=== PATIENT | male | born 1975 | race Caucasian/White ===

== ENCOUNTER 2016-11-26 13:16 | Emergency (ER) | payer SELFPAY ==
[2016-11-26] MEDS ORDERED: VALIUM IV ONE (17:47)
[2016-11-26] MEDS ORDERED: NACL 0.9% 1000 ML 1,000 ML IV ONE (17:47)
[2016-11-26 18:24] LABS: Basophils % (Auto) 0.6 % (0.0-1.8); Eosinophils % (Auto) 0.1 % (0.0-4.3); Hematocrit 40.6 % (35.5-45.6); Hemoglobin 13.2 gm/dl (11.8-15.2); Mean Corpuscular HGB Conc 33 % (32-34); Mean Corpuscular Hemoglobin 28 pg (28-32); Mean Corpuscular Volume 87 fl (84-94); Platelet Count 218 K/mm3 (140-440); Red Blood Count 4.66 M/mm3 (3.65-5.03); Red Cell Distribution Width 12.6 % (13.2-15.2); White Blood Count 8.7 K/mm3 (4.5-11.0)
[2016-11-26 18:42] LABS: Anion Gap 18 mmol/L; Blood Urea Nitrogen 10 mg/dL (9-20); Calcium 8.7 mg/dL (8.4-10.2); Carbon Dioxide 24 mmol/L (22-30); Chloride 97.5 mmol/L (98-107); Creatine Kinase 520 units/L (55-170); Glucose 107 mg/dL (75-100); Potassium 3.4 mmol/L (3.6-5.0); Sodium 136 mmol/L (137-145)
--- NOTE | 2016-11-26 19:03 | Emergency Department Report ---
HPI - General Chief Complaint: Extremity Injury, Lower Time Seen by Provider: 11/26/16 17:51 - HPI HPI: 41-year-old Afro[place] male presents to the emergency department with complaint of pain in the right thigh has been going on for 1 day. He denies any trauma or any event that may have caused the injury or discomfort. He denies any skin color change, swelling. He denies ever having this before. He does not have any past medical history. He has not taken anything for symptoms prior to presentation. He does not have a primary care doctor. No recent travel or sick contacts at home or any prolonged travel or immobility. ED Past Medical Hx - Past Medical History Previous Medical History?: No - Surgical History Past Surgical History?: No - Social History Smoking Status: Former Smoker - Medications Home Medications: Home Medications Medication Instructions Recorded Confirmed Last Taken Type HYDROcodone/APAP 5-325 [[employer] 1 each PO Q6HR PRN #10 tablet 11/26/16 Unknown Rx 5/325] ED Review of Systems ROS: Stated complaint: RIGHT LEG PAIN Other details as noted in HPI Comment: All other systems reviewed and negative Constitutional: denies: chills, fever Eyes: denies: eye pain, eye discharge, vision change ENT: denies: ear pain, throat pain Respiratory: denies: cough, shortness of breath, wheezing Cardiovascular: denies: chest pain, palpitations Gastrointestinal: denies: abdominal pain, nausea, diarrhea Genitourinary: denies: urgency, dysuria Musculoskeletal: myalgia. denies: back pain Skin: denies: rash, lesions Neurological: denies: headache, weakness, paresthesias Physical Exam - Physical Exam Vital Signs: Vital Signs 11/26/16 13:59 Temperature 97.9 F Pulse Rate 64 Respiratory 20 Rate Blood Pressure 156/99 O2 Sat by Pulse 100 Oximetry Physical Exam: GENERAL: The patient is well-developed well-nourished. HEENT: Normocephalic. Atraumatic. Extraocular motions are intact. Patient has moist mucous membranes. Pupils equal reactive to light bilaterally. NECK: Supple. Trachea is midline. CHEST/LUNGS: Clear to auscultation. There is no respiratory distress noted. HEART/CARDIOVASCULAR: Regular. There is no tachycardia. There is no gallop rub or murmur. ABDOMEN: Abdomen is soft, nontender. Patient has normal bowel sounds. There is no abdominal distention. SKIN: There is no rash. There is no edema. There is no diaphoresis. NEURO: The patient is awake, alert, and oriented. The patient is cooperative. The patient has no focal neurologic deficits. The patient has normal speech. MUSCULOSKELETAL: There is some tenderness to palpation to the mid to proximal right thigh but no obvious deformity. There is no limitation range of motion. There is no evidence of acute injury. Muscle strength 5 out of 5 for upper and lower extremities bilaterally. ED Course Vital Signs 11/26/16 13:59 Temperature 97.9 F Pulse Rate 64 Respiratory 20 Rate Blood Pressure 156/99 O2 Sat by Pulse 100 Oximetry ED Medical Decision Making - Lab Data Result diagrams: 11/26/16 18:00 11/26/16 18:00 - Radiology Data Radiology results: report reviewed, image reviewed interpreted by me: X-ray of the right femur does not show any fracture, dislocation, malignancy or any acute process. Right Lower extremity venous Doppler is negative for any DVT. - Medical Decision Making 41-year-old male presents to the emergency department with a one-day history of atraumatic right thigh/leg pain. Negative on venous Doppler for DVT. Labs do not show any leukocytosis, significant elevated creatinine kinase to show rhabdomyolysis or any electrolyte abnormalities that would cause severe muscle spasms. Patient was given IV fluid resuscitation and a dose of a muscle relaxer. X-ray did not show any occult fracture or underlying osseous abnormalities. Patient was seen ambulatory and appears stable while doing so. He will be discharged home with a referral for primary care and orthopedist as well as some pain medication. He will return to the ER with any worsening symptoms or any acute distress. - Differential Diagnosis muscle spasm, DVT, occult fracture, electrolyte abnormality, rhabdomyolysis Critical Care Time: No Critical care attestation.: If time is entered above; I have spent that time in minutes in the direct care of this critically ill patient, excluding procedure time. ED Disposition Clinical Impression: Right leg pain Hypertension Qualifiers: Hypertension type: essential hypertension Qualified Code(s): I10 - Essential ( primary) hypertension Disposition: DISCHARGED TO HOME OR SELFCARE Is pt being admited?: No Condition: Stable Instructions: Arthralgia (ED), Hypertension (ED) Additional Instructions: Please follow-up with a primary care doctor in the next few days. I will also given you a referral for a local orthopedist, Dr. Cesar, to follow-up regarding her leg pain. Return to the emergency department with any worsening of your symptoms or any acute distress. You've been prescribed a medication that is sedating. Therefore this medication cannot be mixed with alcohol, or taken prior to driving, working, or being responsible for children. Prescriptions: HYDROcodone/APAP 5-325 [[employer] 5/325] 1 each PO Q6HR PRN #10 tablet PRN Reason: Pain Referrals: PRIMARY CAREMD [Primary Care Provider] - 3-5 Days VINCE CESAR MD [Staff Physician] - 3-5 Days [facility] - [facility]-5 Days Time of Disposition: 19:04
[2016-11-26] MEDS ORDERED: NORCO 5/325 ONE (19:59)
[2016-11-26 20:00] VITALS: BP 141/63
[2016-11-26] MEDS ORDERED: NORCO 5/325 PO ONE (20:05)
--- NOTE | 2016-11-27 07:36 | XRay Report ---
RIGHT FEMUR: History: Right leg pain. AP and lateral views of the femur demonstrate normal mineralization and contours for this patient's age. No destructive changes are noted and the adjacent soft tissues are normal. IMPRESSION: Normal right femur.
--- NOTE | 2016-11-27 08:10 | Vascular Lab Report ---
Right Lower Extremity Venous Duplex Study: Reason for Exam: Right leg pain. Comments on the Right: All veins visualized are freely compressible without evidence of internal echogenicity. Flow is spontaneous and phasic throughout. No evidence of acute or chronic thrombus is seen in any of the vessels visualized. Comments on the Left: A limited duplex study was done of the proximal veins of the left lower extremity. All veins visualized are freely compressible without evidence of internal echogenicity. Flow is spontaneous and phasic throughout. No evidence of acute or chronic thrombus is seen in any of the vessels visualized. Impression: No evidence of acute or chronic deep venous thrombosis in the right lower extremity.
== END 2016-11-26 20:10 | disposition home or self-care (01) ==
LOC: ED 13:16 → EDBD 13:16 → ED 20:10
DX: M79.651 Pain in right thigh (principal); I10 Essential (primary) hypertension; Z87.891 Personal history of nicotine dependence
CPT/HCPCS: 36415; 73552; 80048; 82550; 85025; 93971; 96361; 96374; 99284; J3360; J7030